=== PATIENT | male | born 1985 ===

== ENCOUNTER 2023-04-08 10:35 | Emergency (ER) | payer MEDICAID, SELFPAY ==
--- NOTE | 2023-04-08 10:37 | ECG_ITS ---
Test Reason : cp Blood Pressure : / mmHG Vent. Rate : 088 BPM Atrial Rate : 088 BPM P-R Int : 146 ms QRS Dur : 092 ms QT Int : 346 ms P-R-T Axes : 059 046 033 degrees QTc Int : 418 ms Normal sinus rhythm Anteroseptal infarct , possibly acute ACUTE MA / STEMI Abnormal ECG No previous ECGs available Referred By: Generic ED Physician Electronically Signed By:SHYLA FU
[2023-04-08] MEDS: Aspirin 81 MG TAB.CHEW 324 MG PO (10:51)
[2023-04-08] MEDS: fentaNYL citrate/PF 100 MCG/2 ML VIAL 50 MCG IVPUSH ×2 (10:52→11:02)
[2023-04-08] MEDS: Atorvastatin Calcium 80 MG TABLET PO (10:53)
[2023-04-08] MEDS: Heparin Sodium,Porcine 5,000 UNIT/ML VIAL 4000 UNIT IVPUSH (10:55)
[2023-04-08 10:57] VITALS: BP 154/110; PULSE 117; RESP 20; O2SAT 100
[2023-04-08] MEDS: Nitroglycerin 0.4 MG TAB.SUBL SUBLINGUAL (10:57)
--- NOTE | 2023-04-08 10:57 | PC.NURSE ---
pt showing few runs of vt on the monitor, pads applied and md at bedside pt reports pain got a little worse from the 07/09
[2023-04-08 11:00] VITALS: BP 154/110; PULSE 113; RESP 20; O2SAT 100
[2023-04-08] MEDS: Ticagrelor 90 MG TABLET 180 MG PO (11:05)
--- NOTE | 2023-04-08 11:11 | PC.NURSE ---
pt given third nitro while on the ems stretcher, pain improving now at 3/10 and bp holding
[2023-04-08 11:13] VITALS: BP 148/94; PULSE 86; RESP 20; O2SAT 100; BMI 30.7
--- NOTE | 2023-04-08 11:16 | ED.CHESTPAIN ---
HPI - Chest Pain General Chief Complaint: Chest Pain Stated Complaint: Chest Pain Time Seen by Provider: 04/08/23 11:15 Source: patient Mode of arrival: ambulatory Limitations: no limitations History of Present Illness HPI narrative: 38-year-old male who presents emergency department for evaluation of chest pain. 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 He states that he was painting at 09:15 hours when he developed pain in his left chest. He describes the pain is a pressure-like pain that does radiate down his left arm. He denied any other associated symptoms. States that he lie down his car and did not feel any relief. His co-worker then insisted that he came to the emergency department for evaluation. Patient states that over the last month he has had several episodes of heartburn like symptoms with pain radiating down his left arm but he has ignore the symptoms. He has no significant past medical history and does not take any medications. He does drink a monster energy drinks frequently. Related Data Allergies Allergy/AdvReac Type Severity Reaction Status Date / Time ferrous sulfate Allergy Unknown Verified 04/08/23 11:18 Review of Systems Review of Systems: Yes all other systems are reviewed and are negative [facility] Past Medical History [facility] Narrative: Past medical history: None. Social history: He states that he is a former cigarette smoker any just recently quit smoking cigarettes. He denies alcohol and drug use. Social History Social History Advance Directives: No Advance Directives Information Provided: No Physical Exam Vital Signs: Vital Signs: Last Vital Signs Pulse 86 04/08/23 11:13 Resp 20 04/08/23 11:13 BP 148/94 H 04/08/23 11:13 Pulse Ox 100 04/08/23 11:13 O2 Del Method Room Air 04/08/23 11:13 O2 Flow Rate 2 04/08/23 11:00 BMI result Body Mass Index 30.7 Const: General: cooperative and no acute distress Orientation/consciousness: oriented to person and oriented to place Limitations: no limitations HEENT: Head: Yes normal to inspection, Yes normocephalic and Yes atraumatic Ears: external ears normal General nose exam: Normal external nose present Face and sinus: Yes normal facial exam Mouth: Normal oral and palatal mucosa present Throat: Yes posterior oropharynx normal Eyes: General: appearance normal, both eyes and all related structures Pupils: Equal, round and reactive pupils present Neck: Neck: Yes normal visual inspection, Yes no lymphadenopathy, Yes trachea midline and Yes supple Chest: Chest palpation & inspection: normal inspection of the chest and normal palpation of entire chest wall Resp: Effort & Inspection: normal respiratory effort and able to speak in complete sentences Auscultation: clear to auscultation bilaterally Cardio: Rate: regular rate Rhythm: regular rhythm Heart sounds: S1 normal heart sound present, S2 normal heart sound present and no murmurs GI: Inspection: Yes normal to inspection Palpation (GI): Soft to palpation, nontender and no guarding Auscultation: normal bowel sounds : General: Yes no CVA tenderness Back/Spine/Pelvis: Back: no CVA tenderness Skin: General skin exam: no rashes or lesions noted Neuro: General: oriented to person and oriented to place Cranial nerves: Yes CN's II-XII intact bilaterally and Yes Equal, round and reactive pupils present Cognition (Neuro): normal cognition Motor exam (neuro): 5/5 motor strength present throughout Extrem: General: Yes normal to inspection Psych: Appearance: grossly normal Speech and movement: Normal speech and movement present Affect: normal affect Attitude: cooperative Thought process: Normal thought process present Thought content: Normal thought content present Medical Decision Making Medical Decision Making MDM Narrative: 38-year-old male with a history of tobacco use who recently quit smoking cigarettes who presents emergency department for evaluation of left-sided chest being to his left arm that started at 09:15 hours 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 Patient has been experiencing heartburn like symptoms with left arm pain intermittently over the last month. On presentation the patient's EKG was consistent with an anteroseptal myocardial infarction. He was brought immediately to a room. He was placed on a cardiac and O2 saturation monitor. He was given aspirin 324 mg to chew, atorvastatin 80 mg, Brilinta 180 mg and heparin 4000 units IV. Patient was also given fentanyl 50 mcg IV x2 and nitroglycerin 0.4 mg sublingually x3. Patient states this pain significantly improved from 8/10 and was 1 to 2/10 at the time of discharge from the emergency department. I did discuss the patient with Dr. Ulloa the Yeast Culture Operator at [facility] and he did accept the patient into the cardiac catheterization lab. The patient did have several runs of 4-6 beat runs of V-tach. The patient had defibrillator pads placed on his chest for transport. Differential Diagnosis Differential diagnosis includes myocardial infarction, aortic dissection, pericarditis Critical Care Time Critical Care Time Critical Care Time: Yes (35) Total Critical Care Time: 35 Attestation: Critical Care: The patient was critically ill with a high probability of imminent or life threatening deterioration. I spent greater than 30 minutes of discontinuous time evaluating the patient,delivering critical care at the bedside, discussing and evaluating pertinent data with consultants. Critical care time does not include time spent performing separately billable procedures or teaching. Total time spent performing critical care was 35 minutes. Discharge Plan Discharge Clinical Impression: Acute ST elevation myocardial infarction (STEMI) Patient Disposition: er [facility] Hospital Transfer Details: [facility] Interventions: Acute Care Transfer Worksheet (ED) Last Done: 04/08/23 11:11
--- NOTE | 2023-04-08 11:35 | MHC.EDTECH ---
@1050 called [facility] STEMI line and paged flavoring oil filterer. Gave call back number. Waiting for call.
--- NOTE | 2023-04-08 11:36 | MHC.EDTECH ---
@1052 called [facility] line to request a STEMI standby. Sheree answers and takes pt demographics. States she will send a crew over [place].
--- NOTE | 2023-04-08 11:39 | PC.NURSE ---
report given to lori fuentes at [facility]
[2023-04-08 11:43] LABS: Basophils Absolute Auto 0.1 X10*3/uL (0.0-0.2); Basophils Percent Auto 0.7 % (0-2); Eosinophils Absolute Auto 0.1 X10*3/uL (0.0-0.4); Eosinophils Percent Auto 0.7 % (0-4); Hematocrit 48.3 % (42.0-52.0); Hemoglobin 16.6 g/dl (14.0-18.0); Imm Gran Abs Auto 0.07 X10*3/uL (0.00-0.03); Imm Gran Pct Auto 0.4 % (0.0-0.4); Lymphocytes Absolute Auto 5.1 X10*3/uL (1.2-4.9); Lymphocytes Percent Auto 30.6 % (20-40); MANUAL DIFF FLAG SCAN; Mean Corpuscular HGB Conc 34.4 g/dl (31.0-36.0); Mean Corpuscular Hemoglobin 29.2 pg (27.0-33.0); Mean Corpuscular Volume 84.9 fL (80.0-98.0); Mean Platelet Volume 10.1 fL (9.4-12.4); Monocytes Absolute Auto 1.1 X10*3/uL (0.1-1.2); Monocytes Percent Auto 6.4 % (2-11); Neutrophils Absolute Auto 10.2 x10*3/uL (2.0-8.3); Neutrophils Percent Auto 61.2 % (45-73); Platelet Count 362 X10*3/uL (160-400); Red Blood Count 5.69 X10*6/uL (4.60-5.80); Red Cell Distribution Width 13.2 % (11.0-16.0); SCAN SMEAR FLAG 1; White Blood Count 16.7 X10*3/uL (4.8-10.8)
--- NOTE | 2023-04-08 11:44 | MHC.EDTECH ---
@3070 [facility] called to speak w/ Willian Morris. Dr. Morris took the call right away.
--- NOTE | 2023-04-08 11:45 | ED_ITS ---
HPI - Chest Pain General Chief Complaint: Chest Pain Stated Complaint: Chest Pain Time Seen by Provider: 04/08/23 11:15 Source: patient Mode of arrival: ambulatory Limitations: no limitations Related Data Allergies Allergy/AdvReac Type Severity Reaction Status Date / Time ferrous sulfate Allergy Unknown Verified 04/08/23 11:18 [facility] Social History Social History Advance Directives: No Advance Directives Information Provided: No Physical Exam Vital Signs: Vital Signs: Last Vital Signs Pulse 86 04/08/23 11:13 Resp 20 04/08/23 11:13 BP 148/94 H 04/08/23 11:13 Pulse Ox 100 04/08/23 11:13 O2 Del Method Room Air 04/08/23 11:13 O2 Flow Rate 2 04/08/23 11:00 BMI result Body Mass Index 30.7 Medications Administered Generic Name Dose Route Start Last Admin Trade Name Freq PRN Reason Stop Dose Admin Nitroglycerin 0.4 mg 04/08/23 11:34 04/08/23 10:57 Nitroglycerin 0.4 Mg Tab.Subl SUBLINGUAL 0.4 mg [id number] PRN Administration Chest Pain Discontinued Medications Generic Name Dose Route Start Last Admin Trade Name Freq PRN Reason Stop Dose Admin Aspirin 324 mg 04/08/23 11:32 04/08/23 10:51 Aspirin 81 Mg Tab.Chew PO 04/08/23 11:33 324 mg ONCE ONE Administration Atorvastatin Calcium 80 mg 04/08/23 11:32 04/08/23 10:53 Atorvastatin Calcium 80 Mg Tablet PO 04/08/23 11:33 80 mg ONCE ONE Administration Fentanyl 50 mcg 04/08/23 11:32 04/08/23 10:52 Fentanyl Citrate/Pf 100 Mcg/2 Ml Vial IVPUSH 04/08/23 11:33 50 mcg ONCE ONE Administration Protocol Fentanyl 50 mcg 04/08/23 11:35 04/08/23 11:02 Fentanyl Citrate/Pf 100 Mcg/2 Ml Vial IVPUSH 04/08/23 11:36 50 mcg ONCE ONE Administration Protocol Heparin Sodium (Porcine) 4,000 unit 04/08/23 11:32 04/08/23 10:55 Heparin Sodium,Porcine 5,000 Unit/Ml Vial IVPUSH 04/08/23 11:33 4,000 unit ONCE ONE Administration Ticagrelor 180 mg 04/08/23 11:32 04/08/23 11:05 Ticagrelor 90 Mg Tablet PO 04/08/23 11:33 180 mg ONCE ONE Administration Medical Decision Making Lab Data 04/08/23 10:57 04/08/23 10:57 Discharge Plan Discharge Clinical Impression: Acute ST elevation myocardial infarction (STEMI) Patient Disposition: [facility] Transfer Details: [facility] Interventions: Acute Care Transfer Worksheet (ED) Last Done: 04/08/23 11:11
[2023-04-08 11:49] LABS: Prothrombin Time 11.7 SEC (10.0-13.1)
[2023-04-08 11:50] LABS: Partial Thromboplastin Time 31.1 SEC (26.0-36.4)
--- NOTE | 2023-04-08 11:50 | MHC.EDTECH ---
@1110 [facility] called to say the patient was accepted. Waiting for assignment at this time.
--- NOTE | 2023-04-08 11:51 | MHC.EDTECH ---
@5733 [facility] called with the room assignment. Accepting is Dr. Ulloa. The patient will go directly to the Dough Brake Machine Operator. Nurse to Nurse number is .
[2023-04-08 12:06] LABS: COVID-19 Test Negative (Negative); IDNOW Serial# 08D9AD1C
[2023-04-08 12:15] LABS: Troponin-I High Sensitivity 121.2 ng/L (<3.5-35.0)
--- NOTE | 2023-04-08 12:15 | PC.NURSE ---
CRITICAL TROP 121.2 MD AWARE, PT TRANSFER TO [facility]
[2023-04-08 12:35] LABS: SLIDE REVIEW VERIFIED
== END 2023-04-08 11:50 | disposition short-term general hospital (02) ==
PROVIDERS: Emergency Provider Emergency Medicine Emergency Medical Services
DX: I21.29 ST elevation (STEMI) myocardial infarction involving other sites (principal); Z20.822 Contact with and (suspected) exposure to COVID-19
CPT/HCPCS: 84484; 85025; 85610; 85730; 87635; 93005; 96374; 96375; 96376; 99285; J1643; J3010